=== PATIENT | male | born 1955 | race Caucasian/White ===

== ENCOUNTER 2017-01-12 01:07 | Emergency (ER) | payer OTHER ==
[~2017-01-12] VITALS: Ht 172.7 cm; Wt 113.6 kg
[~2017-01-12 01:07] MED LIST: ADVAIR 250/501 DISK IH; ATORVASTATIN CA20 MG PO; COUMADIN5 MG PO; DAILY VALUE1 EACH PO; FISH OIL300 MG PO; GLUCOSAMINE CH1 EAC2 PO; HYDROCHLOROTH12.5 M3 PO; LISINOPRIL40 MG PO; LOVENOX120 MG/0.8 SC; OXAYDO5 MG PO; PRAVACHOL40 MG PO; XARELTO20 MG PO; ZANTAC300 MG PO
[2017-01-12 01:50] LABS: HEMATOCRIT 40.9 % (38.0-50.0); MCH 30.2 PG (29.0-34.0); MCHC 33.7 G/DL (30.0-36.0); MCV 89.5 FL (86-99); MEAN PLAT.VOLUME 9.1 uM^3 (9.0-12.4); PLATELET COUNT 339 K/uL (156-360); RBC DIS.WIDTH-CV 15.2 % (11.8-14.6); RBC DIS.WIDTH-SD 49.9 % (39-53); RED BLOOD COUNT 4.57 M/uL (4.00-5.50); WHITE BLOOD COUNT 8.2 K/uL (4.1-10.2)
[2017-01-12 01:57] LABS: INTER. NORMALIZED RATIO 1.9
[2017-01-12 02:00] LABS: PTT 35.2 SEC (25-37)
[2017-01-12 02:08] LABS: CHLORIDE 105 mEq/L (99-109); POTASSIUM 4.3 mEq/L (3.7-5.4); SODIUM 139 mEq/L (136-147)
[2017-01-12 02:10] LABS: GLUCOSE 102 mg/dL (70-99)
[2017-01-12 02:11] LABS: ANION GAP 9 MEQ/L (2-14)
[2017-01-12 02:13] LABS: GFR ESTIMATE (CALCULATED) > 59 mL/min/ (58.99-99999)
[2017-01-12 02:14] LABS: UREA NITROGEN (BUN) 23 mg/dL (9-23)
[2017-01-12 02:17] LABS: TROP-I INTERPRETATION NEGATIVE; TROPONIN-I < 0.01 ng/mL (0.0-0.30)
[2017-01-12] MEDS ORDERED: ANTIVERT25 MG PO (03:30)
[2017-01-12] MEDS ORDERED: DOXYCYCLINE HY100 MG PO (03:30)
[2017-01-12 03:45] VITALS: BP 100/68
[2017-01-12 10:10] LABS: LYME DISEASE SEROLOGY SCREEN NEGATIVE (NEGATIVE)
== END 2017-01-12 03:57 | disposition home or self-care (01) ==
LOC: EME 01:07
PROVIDERS: Emergency Medicine
DX: R42 Dizziness and giddiness (principal); R07.9 Chest pain, unspecified; S30.861A Insect bite (nonvenomous) of abdominal wall, initial encounter; W57.XXXA Bitten or stung by nonvenomous insect and other nonvenomous arthropods, initial encounter; I10 Essential (primary) hypertension; E78.5 Hyperlipidemia, unspecified; Z86.718 Personal history of other venous thrombosis and embolism; Z79.01 Long term (current) use of anticoagulants
CPT/HCPCS: 70450; 80048; 84484; 85027; 85610; 85730; 86618; 93005; 99281; 99284